=== PATIENT | female | born 1980 ===

== ENCOUNTER 2018-09-21 01:00 | Emergency (ER) | payer OTHER ==
[2018-09-21 01:00] VITALS: BMI 29.3
[2018-09-21] MEDS ORDERED: Oxycodone/Acetaminophen 5/325 mg Tab PO STA (01:21)
[2018-09-21 01:22] VITALS: TEMP 97.9
[2018-09-21] MEDS ORDERED: Oxycodone/Acetaminophen 5/325 mg Tab ONE (01:28)
--- NOTE | 2018-09-21 02:13 | C.PDOC ---
History Of Present Illness 38 year old female presents to the ER with a complaint of right great toe pain after accidentally dropping a toolbox on her right foot at home. Denies weakness or numbness. Time Seen by Provider: 09/21/18 01:17 Chief Complaint (Nursing): Lower Extremity Problem/Injury History Per: Patient History/Exam Limitations: no limitations Onset/Duration Of Symptoms: Hrs Current Symptoms Are (Timing): Still Present Recent travel outside of the [place]: No - Ankle/Foot Description Of Injury: Struck With Object Past Medical History Reviewed: Historical Data, Nursing Documentation, Vital Signs Vital Signs: Last Vital Signs Temp 97.9 F 09/21/18 01:20 Pulse 63 09/21/18 01:20 Resp 18 09/21/18 01:20 BP 131/72 09/21/18 01:20 Pulse Ox 99 09/21/18 01:20 - Medical History PMH: Denies: Depression Family History: States: Unknown Family Hx - Social History Hx Tobacco Use: No Hx Alcohol Use: Yes Hx Substance Use: No - Immunization History Hx Tetanus Toxoid Vaccination: No Hx Influenza Vaccination: No Hx Pneumococcal Vaccination: No Review Of Systems Musculoskeletal: Positive for: Other (Right great toe pain) Neurological: Negative for: Weakness, Numbness Physical Exam - Physical Exam Appears: Non-toxic Skin: Warm, Dry Head: Atraumatic, Normacephalic Eye(s): bilateral: Normal Inspection Extremity: Capillary Refill (<2 seconds), Other (Moderate swelling and tenderness to right great toe proximal to toenail with mild erythema and ecchymosis. ROM of right great toe causes pain, otherwise remainder of the right foot normal.) Pulses: Left Dorsalis Pedis: Normal, Right Dorsalis Pedis: Normal Neurological/Psych: Oriented x3, Normal Speech, Normal Motor, Normal Sensation ED Course And Treatment O2 Sat by Pulse Oximetry: 99 (Room air) Pulse Ox Interpretation: Normal - Other Rad Right foot x-ray X-Ray: Interpreted by Me, Viewed By Me Interpretation: Fracture to distal aspect of great toe. Progress Note: Right foot x-ray showed positive fracture of the right great toe. Motrin and percocet administered with relief. Patient placed in ortho shoe and given crutches with instructions for support, will discharge home with instructions to follow up with podiatry for further evaluation. Disposition Counseled Patient/Family Regarding: Diagnosis, Need For Followup, Rx Given - Disposition Referrals: Podiatry Clinic [Outside] Disposition: HOME/ ROUTINE Disposition Time: 02:12 Condition: STABLE Additional Instructions: Leg elevation Use surgical shoe for support Take motrin for pain Follow up with population health coach Return to ER if worse Prescriptions: Ibuprofen [Motrin] 600 mg PO Q6H #30 tab Instructions: Toe Fracture (DC) Forms: [employer] ([place]), Work Excuse - Clinical Impression Clinical Impression: Fracture of right great toe - PA / GROCERY CLERK / Resident Statement MD/DO has reviewed & agrees with the documentation as recorded. - Scribe Statement The provider has reviewed the documentation as recorded by the Scribe Dieter Smart All medical record entries made by the [place] were at my direction and personally dictated by me. I have reviewed the chart and agree that the record accurately reflects my personal performance of the history, physical exam, medical decision making, and the department course for this patient. I have also personally directed, reviewed, and agree with the discharge instructions and disposition.
[2018-09-21 03:12] VITALS: BP 122/82; PULSE 88; RESP 20
[2018-09-21 04:24] VITALS: O2SAT 99
--- NOTE | 2018-09-21 08:41 | RAD ---
PROCEDURE: Radiographs of the right great toe. TECHNIQUE:: AP radiograph of the right foot, with oblique and lateral view of the right great toe. COMPARISON: None. FINDINGS: BONES: There is a comminuted nondisplaced fracture of the 1st distal phalanx. There is intra-articular extension of this fracture. No other fracture is identified. JOINTS: Normal. SOFT TISSUES: Normal. OTHER FINDINGS: None. IMPRESSION: Comminuted nondisplaced fracture of the 1st distal phalanx.
== END 2018-09-21 03:10 | disposition home or self-care (01) ==
LOC: C.ER 01:00
DX: S92.421A Displaced fracture of distal phalanx of right great toe, initial encounter for closed fracture (principal); W22.8XXA Striking against or struck by other objects, initial encounter; Y92.009 Unspecified place in unspecified non-institutional (private) residence as the place of occurrence of the external cause